=== PATIENT | male | born 1935 | race Caucasian/White ===

== ENCOUNTER → 2021-10-05 | Outpatient (CLI) | payer MEDICARE ==
[~2021-10-05] MED LIST: ALLEGRA-D 12 H1 EAC1; ALLEGRA-D 12 H1 EAC1 PO; ANDROGEL; ASPIRIN EC81 M1; CENTRUM SILVER1 EAC2 PO; CO Q-10200 MG PO; FLONASE 0.05%50 MCG NASAL; GLUCOPHAGE1000 MG PO; GLUMETZA1000; JANUVIA25 MG; MELOXICAM7.5 MG; SYNTHROID75 MCG; VENTOLIN HFA 1818 GM INH; VITAMIN C + RO500 MG PO; VITAMIN D32000 UNI1 PO
== END ==
LOC: M.RAD 12:03
PROVIDERS: ATTEND Internal Medicine
DX: J15.8 Pneumonia due to other specified bacteria (principal); Z95.0 Presence of cardiac pacemaker